=== PATIENT | male | born 1930 | race Caucasian/White ===

== ENCOUNTER 2017-04-05 09:38 | Inpatient (IN) | payer OTHER ==
[2017-04-05 09:50] VITALS: BMI 24.3
[2017-04-05] MEDS ORDERED: methylPREDNISolone NA SUCC 125 MG/2 ML VIAL IVPB ONE (10:46)
--- NOTE | 2017-04-05 11:03 | PDOC ---
History of Present Illness - General Chief Complaint: Shortness of Breath Stated Complaint: SOB, WHEEZING Time Seen by Provider: 04/05/17 09:54 - History of Present Illness Initial Comments: 04/05/17 11:03 "Patient is an 86 year old male with a significant past medical history of x2 Stroke (3 years ago) CVA right side weakness, Parkinson's, HTN, B12 Deficiency, asthma, and Seizures who presents to the ED with complaints of SOB that began 5 days ago. Patient reports experiencing bilateral leg swelling as well as right lower leg discoloration that began 3 weeks ago. These symptoms have subsided since with only some mild residual RLE discomfort. He states that the SOB has progressively worsened over the past few days. Patient reports experiencing a non productive cough as well as intermittent wheezing with exertion. Pt believes that this is an asthma exacerbation. Pt is followed by Dr. Dash, who did an EKG earlier this week and found that pt had new T wave inversions. Pt denies ever having any chest pain. Denies nausea, vomiting. Denies fevers, chills. Denies headache, earache. Denies abdominal pain, constipation, diarrhea. Denies contact with sick individuals, out of state traveling. Denies any other symptoms. Allergies: None Social history: No smoking, No alcohol. No illicit drugs. Surgical history: None PMD: Dr. Jimenez Dash " Past History - Past Medical History Allergies/Adverse Reactions: Allergies Allergy/AdvReac Type Severity Reaction Status Date / Time No Known Allergies Allergy Verified 04/05/17 09:47 Home Medications: Ambulatory Orders Unobtainable Home Med List 0 dose .ROUTE UTDICT 08/20/13 Aspirin Coated [Ecotrin -] 325 mg PO DAILY tablet. 11/15/14 Lisinopril [Prinivil] 20 mg PO DAILY tablet 11/15/14 Metoprolol Succinate [Toprol XL -] 50 mg PO DAILY tab.sr.24h 11/15/14 Rosuvastatin [Crestor -] 5 mg PO HS tablet 11/15/14 Hydralazine HCl [Apresoline -] 25 mg PO BID #60 tablet 11/17/14 Hydrochlorothiazide [Hctz -] 25 mg PO DAILY #60 tablet 11/17/14 Asthma: Yes CVA: Yes COPD: No HTN: Yes Seizures: Yes - Suicide/Smoking/Psychosocial Hx Smoking Status: No Smoking History: Never smoked Have you smoked in the past 12 months: No Number of Cigarettes Smoked Daily: 0 Information on smoking cessation initiated: No Hx Alcohol Use: No Drug/Substance Use Hx: No Substance Use Type: None Hx Substance Use Treatment: No Review of Systems - Review of Systems Comments:: 04/05/17 11:06 "GENERAL/CONSTITUTIONAL: No fever or chills. No weakness. HEAD, EYES, EARS, NOSE AND THROAT: No change in vision. No ear pain or discharge. No sore throat. GASTROINTESTINAL: No nausea, vomiting, diarrhea or constipation. GENITOURINARY: No dysuria, frequency, or change in urination. CARDIOVASCULAR: +Shortness of breath. No chest pain RESPIRATORY: +Coughing. +wheezing. No hemoptysis. MUSCULOSKELETAL: No joint or muscle swelling or pain. No neck or back pain. SKIN: No rash NEUROLOGIC: No headache, vertigo, loss of consciousness, or change in strength/ sensation. ENDOCRINE: No increased thirst. No abnormal weight change. HEMATOLOGIC/LYMPHATIC: No anemia, easy bleeding, or history of blood clots. ALLERGIC/IMMUNOLOGIC: No hives or skin allergy. " *Physical Exam - Vital Signs Last Vital Signs Temp Pulse Resp BP Pulse Ox 97.9 F 94 H 20 130/78 99 04/05/17 09:47 04/05/17 09:47 04/05/17 09:47 04/05/17 09:47 04/05/17 09:47 - Physical Exam Comments: 04/05/17 10:59 "GENERAL: Awake, alert, and fully oriented, in no acute distress HEAD: No signs of trauma EYES: PERRLA, EOMI, sclera anicteric, conjunctiva clear ENT: Auricles normal inspection, hearing grossly normal, nares patent, oropharynx clear without exudates. Moist mucosa NECK: Nontender, no stepoffs, Normal ROM, supple, no lymphadenopathy, JVD, or masses LUNGS: + bibasilar rales, very mild expiratory wheezes at lung bases HEART: Regular rate and rhythm, normal S1 and S2, no murmurs, rubs or gallops ABDOMEN: Soft, nontender, normoactive bowel sounds. No guarding, no rebound. No masses EXTREMITIES: RLE with +1 PE and hyperpigmentation, LLE no PE NEUROLOGICAL: Cranial nerves II through XII intact. 5/5 strength and sensation in all extremities, Normal speech, normal gait SKIN: Warm, Dry, normal turgor, no rashes or lesions noted. " Heart Score/ECG Review - ECG Impressions Comment:: 04/05/17 10:56 NSR, no Urmila/STDs, TWI in I and aVL, LBBB, left axis deviation, QTc 520, UT 220 ED Treatment Course - LABORATORY CBC & Chemistry Diagram: 04/05/17 11:15 04/05/17 11:15 - RADIOLOGY Radiology Studies Ordered: Category Date Time Status CHEST PA & LAT [RAD] Stat Radiology 04/05/17 10:44 Ordered DUPLEX VASCUL US-2LEGS [US] Stat Ultrasound 04/05/17 10:54 Ordered Medical Decision Making - Medical Decision Making 04/05/17 10:57 86 M with SOB x 5 days. Pt feels like this is an asthma exacerbation but has minimal wheezing on exam. Per Dr. Dash, pt has new EKG changes. Concerning for ACS or new CHF. Pt also with recent history of asymmetric leg swelling, concerning for PE. - Labs, trop, BNP, ddimer - CXR - LE dopplers - CTPE if indicated - Nebulizers, steroids - Admit 04/05/17 14:37 CBC,CMP WBC 11.2 K/mm3 (4.0-10.0) H 04/05/17 11:15 RBC 4.27 M/mm3 (4.00-5.60) 04/05/17 11:15 Hgb 13.3 GM/dL (11.7-16.9) 04/05/17 11:15 Hct 41.9 % (35.4-49) 04/05/17 11:15 MCV 98.2 fl (80-96) H 04/05/17 11:15 MCH 31.1 pg (25.7-33.7) 04/05/17 11:15 MCHC 31.7 g/dl (32.0-35.9) L 04/05/17 11:15 RDW 14.7 % (11.9-15.9) 04/05/17 11:15 Plt Count 247 K/MM3 (134-434) D 04/05/17 11:15 MPV 9.7 fl (7.5-11.1) 04/05/17 11:15 Neutrophils % 73.1 % (42.8-82.8) D 04/05/17 11:15 Lymphocytes % 21.2 % (8-40) D 04/05/17 11:15 Monocytes % 4.8 % (3.8-10.2) 04/05/17 11:15 Eosinophils % 0.4 % (0-4.5) 04/05/17 11:15 Basophils % 0.5 % (0-2.0) 04/05/17 11:15 Sodium 142 mmol/L (136-145) 04/05/17 11:15 Potassium 4.6 mmol/L (3.5-5.1) 04/05/17 11:15 Chloride 106 mmol/L (98-107) 04/05/17 11:15 Carbon Dioxide 27 mmol/L (21-32) 04/05/17 11:15 Anion Gap 9 (8-16) 04/05/17 11:15 BUN 23 mg/dL (7-18) H 04/05/17 11:15 Creatinine 1.2 mg/dL (0.7-1.3) 04/05/17 11:15 Creat Clearance w eGFR 57.27 (>60) 04/05/17 11:15 Random Glucose 91 mg/dL (74-106) 04/05/17 11:15 Calcium 8.5 mg/dL (8.5-10.1) 04/05/17 11:15 Total Bilirubin 0.5 mg/dL (0.2-1.0) 04/05/17 11:15 AST 88 U/L (15-37) H D 04/05/17 11:15 ALT 50 U/L (12-78) D 04/05/17 11:15 Alkaline Phosphatase 148 U/L (45-117) H D 04/05/17 11:15 Creatine Kinase 221 IU/L (39-308) 04/05/17 11:15 Creatine Kinase Index 3.1 % (0.0-5.0) 04/05/17 11:15 CK-MB (CK-2) 6.930 ng/mL (0.5-3.6) H 04/05/17 11:15 Troponin I 0.05 ng/ml (0.00-0.05) D 01/26/18 11:15 B-Natriuretic Peptide 7844.85 pg/ml (5-450) H 04/05/17 11:15 Total Protein 7.0 g/dl (6.4-8.2) 04/05/17 11:15 Albumin 3.2 g/dl (3.4-5.0) L 04/05/17 11:15 LE dopplers negative Labs notable for elevated BNP 7800. CXR on my read with new RLL consolidation. Will cover for HCAP with ceftriaxone/ azithro. Ddimer elevated, but will defer CTA for now given more likely diagnosis of pneumonia. Admit to Dr. Dash. *DC/Admit/Observation/Transfer Diagnosis at time of Disposition: Pneumonia - Discharge Dispostion Admit: Yes - Referrals Referrals: Jacinda Reardon MD [Primary Care Provider] - - Patient Instructions - Post Discharge Activity - Attestations Physician Attestion: 04/05/17 14:40 I, Dr. Levon Morgan MD, attest that this document has been prepared under my direction and personally reviewed by me in its entirety. I further attest, that it accurately reflects all work, treatment, procedures and medical decision -making performed by me.
[2017-04-05] MEDS ORDERED: ALBUTEROL SO4 2.5/IPRATROPIUM 0.5 INH SOL 3 ML VIAL.NEB. NEB ONE (11:48)
[2017-04-05] MEDS ORDERED: methylPREDNISolone NA SUCC 125 MG/2 ML VIAL ONE (11:49)
[2017-04-05 11:50] LABS: VENOUS PC02 57.9 mmHg (38-52); VENOUS PH 7.27 (7.32-7.42); VENOUS PO2 19.4 mmHg (28-48)
[2017-04-05] MEDS: ALBUTEROL SO4 2.5/IPRATROPIUM 0.5 INH SOL 3 ML VIAL.NEB. NEB SCH ×4 (12:00→12:33)
[2017-04-05 12:08] LABS: BASO % 0.5 % (0-2.0); EOS % 0.4 % (0-4.5); HEMATOCRIT 41.9 % (35.4-49); HEMOGLOBIN 13.3 GM/dL (11.7-16.9); LYMPH % 21.2 % (8-40); MCH 31.1 pg (25.7-33.7); MCHC 31.7 g/dl (32.0-35.9); MEAN CELL VOLUME 98.2 fl (80-96); MEAN PLT VOLUME 9.7 fl (7.5-11.1); MONO % 4.8 % (3.8-10.2); NEUT % 73.1 % (42.8-82.8); PLATELET COUNT 247 K/MM3 (134-434); RBC 4.27 M/mm3 (4.00-5.60); RDW 14.7 % (11.9-15.9); WHITE BLOOD COUNT 11.2 K/mm3 (4.0-10.0)
[2017-04-05 12:14] LABS: ALBUMIN 3.2 g/dl (3.4-5.0); ALK PHOS 148 U/L (45-117); ANION GAP 9 (8-16); BILIRUBIN,TOTAL 0.5 mg/dL (0.2-1.0); BLOOD UREA NITROGEN 23 mg/dL (7-18); CALCIUM 8.5 mg/dL (8.5-10.1); CHLORIDE 106 mmol/L (98-107); CO2 27 mmol/L (21-32); CREATININE 1.2 mg/dL (0.7-1.3); GLUCOSE,RANDOM 91 mg/dL (74-106); POTASSIUM 4.6 mmol/L (3.5-5.1); SGOT/AST 88 U/L (15-37); SGPT/ALT 50 U/L (12-78); SODIUM 142 mmol/L (136-145)
[2017-04-05 12:24] LABS: N-TERMINAL BNP 7844.85 pg/ml (5-450)
[2017-04-05 12:36] LABS: INR 1.1 (0.82-1.09); PROTHROMBIN TIME (PATIENT) 12.4 SEC (9.98-11.88)
[2017-04-05 12:39] LABS: ACTIVATED PTT 28.9 SECONDS (26.9-34.4)
[2017-04-05] MEDS ORDERED: CEFTRIAXONE 1 GM in DEXTROSE 5%-WATER - 50 ML IVPB ONE (14:37)
[2017-04-05] MEDS ORDERED: AZITHROMYCIN 500 MG TABLET PO ONE (14:37)
[2017-04-05] MEDS ORDERED: ACETAMINOPHEN 325 MG TABLET (FP) PO PRN (15:42)
[2017-04-05] MEDS ORDERED: CEFTRIAXONE 1 GM/50 ML BAG ONE (15:52)
[2017-04-05] MEDS ORDERED: AZITHROMYCIN 250 MG TABLET ONE (15:52)
--- NOTE | 2017-04-05 15:52 | HP ---
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 pt seen / examined earlier today in er events noted no distress subjective sob + denies cp. denies abd pain denies cough/ fever/ chills has abnormal ekg in office to be admitted to tele for chf exac. u/s -ve for dvt cxr- infiltrate ? 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, Parkinson's Cardiovascular: Yes: HTN Renal/: Yes: BPH Heme/Onc: Yes: B12 Deficiency - Smoking History Smoking history: Never smoked Have you smoked in the past 12 months: No Aproximately how many cigarettes per day: 0 - Alcohol/Substance Use Hx Alcohol Use: No - Social History History of Recent Travel: No Home Medications - Allergies Allergies/Adverse Reactions: Allergies Allergy/AdvReac Type Severity Reaction Status Date / Time No Known Allergies Allergy Verified 04/05/17 09:47 - Home Medications Home Medications: Ambulatory Orders Unobtainable Home Med List 0 dose .ROUTE UTDICT 08/20/13 Aspirin Coated [Ecotrin -] 325 mg PO DAILY tablet. 11/15/14 Lisinopril [Prinivil] 20 mg PO DAILY tablet 11/15/14 Metoprolol Succinate [Toprol XL -] 50 mg PO DAILY tab.sr.24h 11/15/14 Rosuvastatin [Crestor -] 5 mg PO HS tablet 11/15/14 Hydralazine HCl [Apresoline -] 25 mg PO BID #60 tablet 11/17/14 Hydrochlorothiazide [Hctz -] 25 mg PO DAILY #60 tablet 11/17/14 Review of Systems Findings/Remarks: see [facility] Physical Examination Vital Signs: Vital Signs Temperature 97.9 F 04/05/17 09:47 Pulse Rate 94 H 04/05/17 09:47 Respiratory Rate 20 04/05/17 09:47 Blood Pressure 130/78 04/05/17 09:47 O2 Sat by Pulse Oximetry (%) 97 04/05/17 10:35 Constitutional: Yes: No Distress, Calm Eyes: Yes: Conjunctiva Clear Neck: Yes: Supple Cardiovascular: Yes: Regular Rate and Rhythm Respiratory: Yes: Diminished (at bases) Gastrointestinal: Yes: Soft Edema: No Neurological: Yes: Alert, Pre-Existing Deficit (right side weakness.) Psychiatric: Yes: Alert Labs: CBC, BMP 04/05/17 11:15 04/05/17 11:15 Imaging - Results Chest X-ray: Report Reviewed Ultrasound: Report Reviewed Problem List - Problems (1) Shortness of breath Code(s): R06.02 - SHORTNESS OF BREATH (2) Acute exacerbation of CHF (congestive heart failure) Code(s): I50.9 - HEART FAILURE, UNSPECIFIED (3) CVA, old, ataxia Code(s): I69.993 - ATAXIA FOLLOWING UNSPECIFIED CEREBROVASCULAR DISEASE (4) Pneumonia Code(s): J18.9 - PNEUMONIA, UNSPECIFIED ORGANISM Assessment/Plan Admit to tele doubt pneumonia abx i/v lasix echo cardiology/ pulmonary eval meds reviewed will follow. discussed with pt/ pts sister.
--- NOTE | 2017-04-05 16:51 | CON.PULM ---
Consult Consult Specialty:: PULMONARY Referred by:: FLACO Reason for Consultation:: COPD - History of Present Illness Chief Complaint: SOB/OCCASSIONAL COUGH History of Present Illness: "Patient is an 86 year old male with a significant past medical history of x2 Stroke (3 years ago) CVA right side weakness, Parkinson's, HTN, B12 Deficiency, asthma, and Seizures who presents to the ED with complaints of SOB that began 5 days ago. Patient reports experiencing bilateral leg swelling as well as right lower leg discoloration that began 3 weeks ago. These symptoms have subsided since with only some mild residual RLE discomfort. He states that the SOB has progressively worsened over the past few days. Patient reports experiencing a non productive cough as well as intermittent wheezing with exertion. Pt believes that this is an asthma exacerbation. Pt is followed by Dr. Dash, who did an EKG earlier this week and found that pt had new T wave inversions. Pt denies ever having any chest pain. Denies nausea, vomiting. Denies fevers, chills. Denies headache, earache. Denies abdominal pain, constipation, diarrhea. Denies contact with sick individuals, out of state traveling. Denies any other symptoms. 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 No: O2 Dependent, Pneumonia, Pulmonary Fibrosis Gastrointestinal: No: Ascites Hepatobiliary: No: Cirrhosis Renal/: Yes: BPH Heme/Onc: No: Anemia - Alcohol/Substance Use Hx Alcohol Use: No - Smoking History Smoking history: Never smoked Have you smoked in the past 12 months: No Aproximately how many cigarettes per day: 0 - Social History History of Recent Travel: No Home Medications - Allergies Allergies/Adverse Reactions: Allergies Allergy/AdvReac Type Severity Reaction Status Date / Time No Known Allergies Allergy Verified 04/05/17 09:47 - Home Medications Home Medications: Ambulatory Orders Unobtainable Home Med List 0 dose .ROUTE UTDICT 08/20/13 Aspirin Coated [Ecotrin -] 325 mg PO DAILY tablet. 11/15/14 Lisinopril [Prinivil] 20 mg PO DAILY tablet 11/15/14 Metoprolol Succinate [Toprol XL -] 50 mg PO DAILY tab.sr.24h 11/15/14 Rosuvastatin [Crestor -] 5 mg PO HS tablet 11/15/14 Hydralazine HCl [Apresoline -] 25 mg PO BID #60 tablet 11/17/14 Hydrochlorothiazide [Hctz -] 25 mg PO DAILY #60 tablet 11/17/14 Family Disease History - Family Disease History Family History: Unremarkable Review of Systems - Review of Systems Constitutional: denies: Chills, Fever Eyes: denies: Blind Spots HENT: denies: Difficult Swallowing Neck: denies: Decreased ROM Cardiovascular: denies: Chest Pain Respiratory: reports: Cough, SOB on Exertion (CHRONIC) Gastrointestinal: reports: No Symptoms Genitourinary: reports: No Symptoms Physical Exam Vital Sings: Vital Signs Temperature 98.5 F 04/05/17 16:43 Pulse Rate 92 H 04/05/17 16:43 Respiratory Rate 18 04/05/17 16:43 Blood Pressure 130/89 04/05/17 16:43 O2 Sat by Pulse Oximetry (%) 95 04/05/17 16:00 Constitutional: Yes: Calm Eyes: Yes: EOM Intact HENT: Yes: Normocephalic Neck: Yes: Trachea Midline Cardiovascular: Yes: Regular Rate and Rhythm, S1, S2 Respiratory: Yes: CTA Bilaterally Gastrointestinal: Yes: Normal Bowel Sounds Edema: LLE: 1+ Neurological: Yes: Alert Psychiatric: Yes: Alert Labs: CBC, BMP 04/05/17 11:15 04/05/17 11:15 REST REVIEWED Imaging - Results Chest X-ray: Report Reviewed, Image Reviewed Ultrasound: Report Reviewed Problem List - Problems (1) Parkinson disease Code(s): G20 - PARKINSON'S DISEASE (2) Pneumonia Code(s): J18.9 - PNEUMONIA, UNSPECIFIED ORGANISM (3) Hypertension Code(s): I10 - ESSENTIAL (PRIMARY) HYPERTENSION Assessment/Plan 86 YEAR OLD MALE W H/O PARKINSON DISEASE/CVA ADMITTED W SOB PROGRESSIVE FOUND TO HAVE A POSSIBLE RLL INFILTRATE/ATELECTASIS INFLU SWAB NEGATIVE AGREE WITH ANTIBIOTICS/O2/BRONCHODILATORS ANTICIPATE EARLY DISCHARGE. Juana TIM MD
[2017-04-05] MEDS: FUROSEMIDE 40 MG/4 ML INJECTABLE VIAL IVPUSH SCH (17:19)
[2017-04-05] MEDS: ATORVASTATIN CA 10 MG TABLET (FP) PO SCH (21:07)
[2017-04-05] MEDS: HEPARIN NA (PORCINE) 5,000 UNITS/ML 1ML VIAL SQ SCH (21:08)
[2017-04-05] MEDS: CARBIDOPA/LEVODOPA 25/100 TABLET (FP) PO SCH (21:08)
[2017-04-05] MEDS: PRAMIPEXOLE DIHYDROCHLORIDE 0.25 MG TABLET PO SCH (21:08)
[2017-04-05] MEDS ORDERED: PT OWN MED DRAWER 7, Y5N ONE (21:10)
[2017-04-06] MEDS ORDERED: PT OWN MED DRAWER 7, Y5N ONE ×3 (05:10→23:42)
[2017-04-06] MEDS: CARBIDOPA/LEVODOPA 25/100 TABLET (FP) PO SCH ×3 (05:15→22:17)
--- NOTE | 2017-04-06 07:34 | CONS ---
DATE OF CONSULTATION: 04/05/2017 REQUESTING PHYSICIAN: Jimenez Dash MD CHIEF COMPLAINT: 1. Increasing dyspnea. 2. Pedal edema. 3. Wheezing. HISTORY: The patient is an 86-year-old gentleman with a history of hypertension status post cerebrovascular accident in 2007 and 2012 both affecting the right side, history of B12 deficiency, history of bronchial asthma starting at the age of 34. There is also history of tremors involving the right hand and right foot. The patient states that for the past 6 weeks he started noticing bilateral lower extremity edema and approximately 3 weeks ago this was accompanied by increasing shortness of breath, which progressively became more pronounced. The edema was associated with bilateral discoloration of the lower extremities, and he developed pruritus of both the lower extremities. He denies having chest pain or discomfort either at rest or with exertion. He did experience dyspnea when going to bed at night accompanied by intermittent wheezing and has a nonproductive cough. There is no history of palpitations, lightheadedness, dizziness, presyncope, or syncope reported. Denies having paroxysmal or nocturnal dyspnea or orthopnea. No history of diabetes mellitus. Denies having hypercholesterolemia. PAST MEDICAL HISTORY: As mentioned in the history of present illness. History of low back syndrome for the past 12 years. PAST SURGICAL HISTORY: No surgeries. SOCIAL HISTORY: He is . Has no children. 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 He has never smoked or drank. FAMILY HISTORY: Father at the age of 85 of natural causes. Mother at age 41 related to cancer site uncertain. He had 8 brothers and 1 sister. His younger brother at age 1-1/2. Another brother has of unknown cause. Remaining siblings are alive. He has 2 stepbrothers and 2 stepsisters. They are alive. ALLERGIES: The patient has SEASONAL ALLERGIES and states that he has had hay fever. MEDICATIONS: The patient forgot to bring his medicines, so he is uncertain of the names and doses. As noted in the emergency room record, he is on the following medications: 1. Aspirin 325 mg p.o. daily. 2. Lisinopril 20 mg p.o. daily. 3. Metoprolol succinate 50 mg p.o. daily. 4. Rosuvastatin 5 mg p.o. daily. 5. Hydralazine 25 mg p.o. b.i.d. 6. Hydrochlorothiazide 25 mg p.o. daily. CURRENT MEDICATIONS: 1. Tylenol 650 mg q.6 hours p.r.n. 2. Heparin 5000 units subcutaneous b.i.d. 3. 1 g IV daily. 4. Carbidopa/levodopa 25/100 mg p.o. t.i.d. 5. Mirapex 0.25 mg p.o. nightly. 6. Atorvastatin 10 mg p.o. daily. 7. Lasix 40 mg IV daily. 8. Plavix 75 mg p.o. daily. 9. Vitamin B12 takes 1000 mcg p.o. daily. 10. The patient received methylprednisolone 125 mg in the emergency room IV. 11. He also received 500 mg of azithromycin. 12. DuoNeb via nebulizer. REVIEW OF SYSTEMS: Constitutional: No history of chills, fever, or night sweats. No history of unintentional weight loss. HEENT: Denies having headaches, diplopia, blurred vision. Uses glasses for reading. No history of epistaxis, hoarseness, tinnitus, or deafness. Cardiovascular: See history of present illness. Respiratory: See history of present illness. History of nonproductive cough. No history of hemoptysis. No history of tuberculosis. Gastrointestinal: No history of nausea, vomiting, melena, or hematemesis. No history of abdominal pain or discomfort. No history of change in bowel habits. Neurologic: History of right hemiparesis and tremors involving the right hand and right foot. He has right hemiparesis. Endocrine: No history of polyuria or polydipsia. No history of intolerance to cold or warm weather. Genitourinary: History of frequency 4-5 times per day and nocturia 1-2 times per day. There is no history of hematuria. Musculoskeletal: History of chronic low back syndrome. Hematologic: Denies having anemia, ecchymosis, or bleeding. PHYSICAL EXAMINATION: General: An 86-year-old alert gentleman who is in moderate respiratory distress. There is no pallor, cyanosis, clubbing, or jaundice. Vital Signs: Blood pressure 130/89 mmHg, pulse 92 beats per minute and regular. He is afebrile. Respirations are 18 per minute. Weight is 200 pounds. Oxygen saturation is 98% on room air. Neck: Supple. No jugular venous distention. Neck veins are pulsatile. There is a positive hepatojugular reflux. Carotids are 2+. Upstrokes are normal. No bruits are heard. Heart: PMI is in the 5th intercostal space. No heaves or thrills. Heart sounds are distant. There is grade 1/6 systolic murmur heard over the left lower sternal border and apex inhaled expiration. No diastolic murmur or gallops are appreciated. Lungs: Fine crepitations at the right base. There are no other extraneous sounds heard. Chest: Normal AP diameter. Expansion is symmetrical. Abdomen: Soft, nontender. No hepatosplenomegaly or palpable masses are felt. Bowel sounds are present. No bruits are heard. Extremities: No calf tenderness. There is 1 to 2+ bilateral ankle edema. There is discoloration involving both lower extremities below the knees more pronounced on the right. Femoral pulses right is 1+, left is weak. Both dorsalis pedis and posterior tibial pulses are not palpable. There is deformity of the nails of both feet. LABORATORY DATA: ECG is not available. Lower extremity venous ultrasound. Impression: There is no evidence of deep vein thrombosis in both lower extremities. X-ray chest. Impression: Interval right basilar atelectatic changes/infiltrate and minimal infiltrate in the right mid lung as well as a small right pleural effusion. CBC: WBC count 11,200, hemoglobin 13.3 g/dL, platelet count 247,000. Differential: Neutrophils 73.1%, lymphocytes 21.2%, monocytes 4.8%, eosinophils 0.4%, basophils 0.5%. Chemistry: Sodium 142, potassium 4.6, chloride 106, CO2 is 27 mmol/L, BUN 23, creatinine 1.2 mg/dL, random glucose 91 mg/dl, AST 88, ALT 50, alkaline phosphatase 148, CK 221. Troponin 0.05. BNP 7844.85, total protein 7, albumin 3.2. IMPRESSION: 1. Clinical presentation consistent with congestive heart failure [place] Heart Classification 3-4. 2. Hypertension, hypertensive cardiovascular disease. 3. History of bronchial asthma, asthmatic bronchitis needs to be excluded. 4. Ausculatory findings suggestive of tricuspid regurgitation. 5. Status post cerebrovascular accident with right hemiparesis. 6. Tremors involving the right hand and foot secondary to number 4. 7. History of vitamin B12 deficiency. 8. Abnormal liver function tests. 9. History of low back syndrome. RECOMMENDATIONS: 1. Echocardiogram for evaluation of left ventricular size and function. 2. Kindly obtain all his medications from home. 3. Consider adding ARB. 4. ECG. 5. Follow up basic metabolic profile. 6. Bronchodilators via nebulizer. 7. Peripheral arterial Dopplers. Thank you for your referral. Radha [id number]
[2017-04-06 07:45] LABS: BASO % 0.2 % (0-2.0); EOS % 0.2 % (0-4.5); HEMATOCRIT 39.3 % (35.4-49); HEMOGLOBIN 12.4 GM/dL (11.7-16.9); LYMPH % 23.8 % (8-40); MCH 30.8 pg (25.7-33.7); MCHC 31.7 g/dl (32.0-35.9); MEAN CELL VOLUME 97.4 fl (80-96); MEAN PLT VOLUME 9.6 fl (7.5-11.1); MONO % 6.5 % (3.8-10.2); NEUT % 69.3 % (42.8-82.8); PLATELET COUNT 248 K/MM3 (134-434); RBC 4.03 M/mm3 (4.00-5.60); RDW 14.5 % (11.9-15.9); WHITE BLOOD COUNT 13.3 K/mm3 (4.0-10.0)
[2017-04-06 08:01] LABS: CHLORIDE 109 mmol/L (98-107); POTASSIUM 4.4 mmol/L (3.5-5.1); SODIUM 144 mmol/L (136-145)
[2017-04-06 08:06] LABS: ALK PHOS 120 U/L (45-117); ANION GAP 8 (8-16); BILIRUBIN,TOTAL 0.7 mg/dL (0.2-1.0); BLOOD UREA NITROGEN 26 mg/dL (7-18); CALCIUM 8.1 mg/dL (8.5-10.1); CHOLESTEROL 111 mg/dL (50-200); CO2 27 mmol/L (21-32); CREATININE 1.2 mg/dL (0.7-1.3); GLUCOSE,RANDOM 95 mg/dL (74-106); HDL CHOLESTEROL 48 mg/dL (40-60); LDL CHOLESTEROL (ONLY SJRH) 56 mg/dL (5-100); SGOT/AST 38 U/L (15-37); SGPT/ALT 21 U/L (12-78); TOT PROT 6.3 g/dl (6.4-8.2); TRIGLYCERIDES 66 mg/dL (35-160)
[2017-04-06] MEDS: CLOPIDOGREL BISULFATE 75 MG TABLET (FP) PO SCH (09:17)
[2017-04-06] MEDS: CYANOCOBALAMIN 1,000 MCG TABLET (FP) PO SCH (09:17)
[2017-04-06] MEDS: CEFTRIAXONE 1 G/50 ML PREMIX 50 ML IVPB SCH (09:17)
[2017-04-06] MEDS: FUROSEMIDE 40 MG/4 ML INJECTABLE VIAL IVPUSH SCH (09:17)
[2017-04-06] MEDS: HEPARIN NA (PORCINE) 5,000 UNITS/ML 1ML VIAL SQ SCH ×2 (09:17→22:18)
[2017-04-06 09:29] LABS: URINE APPEARANCE CLEAR; URINE BILIRUBIN NEGATIVE (NEGATIVE); URINE BLOOD 2+ (NEGATIVE); URINE COLOR STRAW; URINE GLUCOSE (UA) NEGATIVE (NEGATIVE); URINE KETONE NEGATIVE (NEGATIVE); URINE NITRITE NEGATIVE (NEGATIVE); URINE PROTEIN NEGATIVE (NEGATIVE); URINE UROBILINOGEN NEGATIVE mg/dL (0.2-1.0)
[2017-04-06 09:39] LABS: URINE LEUK ESTERASE 3+ (NEGATIVE)
[2017-04-06 09:55] LABS: EPI CELLS RARE /HPF (FEW); URINE BACTERIA FEW /hpf (NONE SEEN); URINE HYALINE CAST 1 /lpf
--- NOTE | 2017-04-06 12:21 | EKG ---
Test Reason : Blood Pressure : / mmHG Vent. Rate : 094 BPM Atrial Rate : 094 BPM P-R Int : 220 ms QRS Dur : 132 ms QT Int : 416 ms P-R-T Axes : 057 -47 122 degrees QTc Int : 520 ms SINUS RHYTHM WITH 1ST DEGREE A-V BLOCK WITH PREMATURE ATRIAL COMPLEXES POSSIBLE LEFT ATRIAL ENLARGEMENT LEFT AXIS DEVIATION LEFT BUNDLE BRANCH BLOCK ABNORMAL ECG Confirmed by MD CLYDE, MARGARETH ([id number]) on 04/06/2017 12:21:26 PM Referred By: Confirmed By:MARGARETH TANG MD
--- NOTE | 2017-04-06 12:22 | PN ---
Progress Note, Physician History of Present Illness: feels well all consults noted no complains - Current Medication List Current Medications: Active Medications Acetaminophen (Tylenol -) 650 mg PO Q6H PRN PRN Reason: BACK PAIN Last Admin: 04/05/17 21:08 Dose: 650 mg Atorvastatin Calcium (Lipitor -) 10 mg PO HS [facility] Last Admin: 04/05/17 21:07 Dose: 10 mg Carbidopa/Levodopa (Sinemet 25/100 -) 1 each PO TID [facility] Last Admin: 04/06/17 05:15 Dose: 1 each Clopidogrel Bisulfate (Plavix -) 75 mg PO DAILY [facility] Last Admin: 04/06/17 09:17 Dose: 75 mg Cyanocobalamin (Vitamin B12 -) 1,000 mcg PO DAILY [facility] Last Admin: 04/06/17 09:17 Dose: 1,000 mcg Furosemide (Lasix Injection -) 40 mg IVPUSH DAILY [facility] Last Admin: 04/06/17 09:17 Dose: 40 mg Heparin Sodium (Porcine) (Heparin -) 5,000 unit SQ BID [facility] Last Admin: 04/06/17 09:17 Dose: 5,000 unit CEFTRIAXONE 1 G/50 ML PREMIX (Ceftriaxone 1 Gm-D5w Bag) 50 mls @ 100 mls/hr IVPB DAILY [facility] Last Admin: 04/06/17 09:17 Dose: 100 mls/hr Pramipexole Dihydrochloride (Mirapex -) 0.25 mg PO HS [facility] Last Admin: 04/05/17 21:08 Dose: 0.25 mg - Objective Vital Signs: Vital Signs Temperature 97.6 F 04/06/17 05:38 Pulse Rate 78 04/06/17 10:00 Respiratory Rate 20 04/06/17 10:00 Blood Pressure 134/78 04/06/17 10:00 O2 Sat by Pulse Oximetry (%) 97 04/06/17 10:00 Constitutional: Yes: No Distress, Calm Eyes: Yes: Conjunctiva Clear Neck: Yes: Supple Cardiovascular: Yes: Regular Rate and Rhythm Respiratory: Yes: CTA Bilaterally Gastrointestinal: Yes: Soft Edema: No Neurological: Yes: Alert, Pre-Existing Deficit Labs: CBC, BMP 04/06/17 06:00 04/06/17 06:00 INR, PTT INR 1.10 (0.82-1.09) 01/26/18 11:15 Problem List - Problems (1) Shortness of breath Code(s): R06.02 - SHORTNESS OF BREATH (2) Acute exacerbation of CHF (congestive heart failure) Code(s): I50.9 - HEART FAILURE, UNSPECIFIED (3) CVA, old, ataxia Code(s): I69.993 - ATAXIA FOLLOWING UNSPECIFIED CEREBROVASCULAR DISEASE (4) Pneumonia Code(s): J18.9 - PNEUMONIA, UNSPECIFIED ORGANISM Assessment/Plan better clinically stable abx i/v lasix echo pending cardiology/ pulmonary eval consults noted discussed with pts sister in law/ pt she is recommending str - she is very concerned that she has many steps at home pt himself refuses str. continue present care will follow
--- NOTE | 2017-04-06 16:10 | PN ---
Progress Note (short form) - Note Progress Note: 86 year old male admited with SOB, pedal edema and diagnosed to have CHF, h/o hypertension, s/p CVA (x2) with right hemiplegia, bronchial asthma, has a persistant nonprductive cough, No further dyspnea or orthopnea. Patient is ambulating in the room. Active Medications Acetaminophen (Tylenol -) 650 mg PO Q6H PRN PRN Reason: BACK PAIN Last Admin: 04/05/17 21:08 Dose: 650 mg Atorvastatin Calcium (Lipitor -) 10 mg PO HS [facility] Last Admin: 04/05/17 21:07 Dose: 10 mg Carbidopa/Levodopa (Sinemet 25/100 -) 1 each PO TID [facility] Last Admin: 04/06/17 14:16 Dose: 1 each Clopidogrel Bisulfate (Plavix -) 75 mg PO DAILY [facility] Last Admin: 04/06/17 09:17 Dose: 75 mg Cyanocobalamin (Vitamin B12 -) 1,000 mcg PO DAILY [facility] Last Admin: 04/06/17 09:17 Dose: 1,000 mcg Furosemide (Lasix Injection -) 40 mg IVPUSH DAILY [facility] Last Admin: 04/06/17 09:17 Dose: 40 mg Heparin Sodium (Porcine) (Heparin -) 5,000 unit SQ BID [facility] Last Admin: 04/06/17 09:17 Dose: 5,000 unit CEFTRIAXONE 1 G/50 ML PREMIX (Ceftriaxone 1 Gm-D5w Bag) 50 mls @ 100 mls/hr IVPB DAILY [facility] Last Admin: 04/06/17 09:17 Dose: 100 mls/hr Pramipexole Dihydrochloride (Mirapex -) 0.25 mg PO HS [facility] Last Admin: 04/05/17 21:08 Dose: 0.25 mg 86 year male in no acute distress, no pallor, cyanosis or jaundice. Last Vital Signs Temp Pulse Resp BP Pulse Ox 98.3 F 85 22 135/83 97 04/06/17 13:25 04/06/17 13:25 04/06/17 13:25 04/06/17 13:25 04/06/17 10:00 NECK: Supple, no JVD, -ve HJR. NO bruits heards. HEART: No heaves or thrills , no murmur or gallops heard. LUNGS: Scattered creps. no wheezing heard ABDOMEN: Soft, no organomegaly or masses felt. EXTREMITIES: No edema or calf tenderness discoloration of both lower extremities. CBC, BMP 04/06/17 06:00 04/06/17 06:00 Troponin, BNP 04/06/17 06:00 Troponin I 0.05 IMPRESSION: 1. CHF, resolving. 2. Hypertension. 3. S/p CVA with right hemiparesis. 4. Asthmatic bronchitis. Recommendations: 1. Current therapy. 2. Echogardiogram. 3. EKG.
[2017-04-06] MEDS: PRAMIPEXOLE DIHYDROCHLORIDE 0.25 MG TABLET PO SCH (22:17)
[2017-04-06] MEDS: ATORVASTATIN CA 10 MG TABLET (FP) PO SCH (22:18)
[2017-04-07] MEDS ORDERED: PT OWN MED DRAWER 7, Y5N ONE ×3 (05:39→21:07)
[2017-04-07] MEDS: CARBIDOPA/LEVODOPA 25/100 TABLET (FP) PO SCH ×3 (05:44→21:35)
[2017-04-07] MEDS ORDERED: ALBUTEROL SO4 2.5/IPRATROPIUM 0.5 INH SOL 3 ML VIAL.NEB. NEB PRN (06:16)
[2017-04-07 07:56] LABS: BASO % 0.2 % (0-2.0); EOS % 1.8 % (0-4.5); HEMATOCRIT 39.4 % (35.4-49); HEMOGLOBIN 12.8 GM/dL (11.7-16.9); LYMPH % 36.4 % (8-40); MCH 31.6 pg (25.7-33.7); MCHC 32.5 g/dl (32.0-35.9); MEAN CELL VOLUME 97.2 fl (80-96); MEAN PLT VOLUME 9.7 fl (7.5-11.1); MONO % 6.4 % (3.8-10.2); NEUT % 55.2 % (42.8-82.8); PLATELET COUNT 246 K/MM3 (134-434); RBC 4.06 M/mm3 (4.00-5.60); RDW 14.3 % (11.9-15.9); WHITE BLOOD COUNT 11.5 K/mm3 (4.0-10.0)
[2017-04-07 08:10] LABS: CHLORIDE 107 mmol/L (98-107); POTASSIUM 4.4 mmol/L (3.5-5.1); SODIUM 143 mmol/L (136-145)
[2017-04-07 08:22] LABS: ALBUMIN 3.1 g/dl (3.4-5.0); ALK PHOS 111 U/L (45-117); ANION GAP 9 (8-16); BILIRUBIN,TOTAL 0.4 mg/dL (0.2-1.0); BLOOD UREA NITROGEN 35 mg/dL (7-18); CALCIUM 8.3 mg/dL (8.5-10.1); CO2 27 mmol/L (21-32); CREATININE 1.4 mg/dL (0.7-1.3); GLUCOSE,RANDOM 87 mg/dL (74-106); SGOT/AST 34 U/L (15-37); SGPT/ALT 20 U/L (12-78); TOT PROT 6.5 g/dl (6.4-8.2)
[2017-04-07] MEDS: HEPARIN NA (PORCINE) 5,000 UNITS/ML 1ML VIAL SQ SCH ×2 (09:59→21:34)
[2017-04-07] MEDS: FUROSEMIDE 40 MG/4 ML INJECTABLE VIAL IVPUSH SCH (09:59)
[2017-04-07] MEDS: CYANOCOBALAMIN 1,000 MCG TABLET (FP) PO SCH (10:00)
[2017-04-07] MEDS: CLOPIDOGREL BISULFATE 75 MG TABLET (FP) PO SCH (10:00)
[2017-04-07] MEDS: CEFTRIAXONE 1 G/50 ML PREMIX 50 ML IVPB SCH (10:00)
--- NOTE | 2017-04-07 11:24 | PN ---
Progress Note, Physician History of Present Illness: feels better denies cp. denies sob. says go to bathroom frequently for frequent urination. - Current Medication List Current Medications: Active Medications Acetaminophen (Tylenol -) 650 mg PO Q6H PRN PRN Reason: BACK PAIN Last Admin: 04/05/17 21:08 Dose: 650 mg Albuterol/Ipratropium (Duoneb -) 1 amp NEB Q6H PRN PRN Reason: SHORTNESS OF BREATH Stop: 04/07/17 14:00 Last Admin: 04/07/17 06:37 Dose: 1 amp Atorvastatin Calcium (Lipitor -) 10 mg PO [facility] Last Admin: 04/06/17 22:18 Dose: 10 mg Carbidopa/Levodopa (Sinemet 25/100 -) 1 each PO TID [facility] Last Admin: 04/07/17 05:44 Dose: 1 each Clopidogrel Bisulfate (Plavix -) 75 mg PO DAILY [facility] Last Admin: 04/07/17 10:00 Dose: 75 mg Cyanocobalamin (Vitamin B12 -) 1,000 mcg PO DAILY [facility] Last Admin: 04/07/17 10:00 Dose: 1,000 mcg Furosemide (Lasix Injection -) 40 mg IVPUSH DAILY [facility] Last Admin: 04/07/17 09:59 Dose: 40 mg Heparin Sodium (Porcine) (Heparin -) 5,000 unit SQ BID [facility] Last Admin: 04/07/17 09:59 Dose: 5,000 unit CEFTRIAXONE 1 G/50 ML PREMIX (Ceftriaxone 1 Gm-D5w Bag) 50 mls @ 100 mls/hr IVPB DAILY [facility] Last Admin: 04/07/17 10:00 Dose: 100 mls/hr Pramipexole Dihydrochloride (Mirapex -) 0.25 mg PO [facility] Last Admin: 04/06/17 22:17 Dose: 0.25 mg - Objective Vital Signs: Vital Signs Temperature 98.1 F 04/07/17 09:43 Pulse Rate 88 04/07/17 09:43 Respiratory Rate 20 04/07/17 09:43 Blood Pressure 121/68 04/07/17 09:43 O2 Sat by Pulse Oximetry (%) 97 04/06/17 21:00 Constitutional: Yes: No Distress, Calm Eyes: Yes: Conjunctiva Clear Neck: Yes: Supple Cardiovascular: Yes: Regular Rate and Rhythm Respiratory: Yes: Diminished (at bases- better air entry) Gastrointestinal: Yes: Soft Edema: No Neurological: Yes: Alert, Pre-Existing Deficit Labs: CBC, BMP 04/07/17 06:20 04/07/17 06:20 INR, PTT INR 1.10 (0.82-1.09) 04/05/17 11:15 Problem List - Problems (1) Shortness of breath Code(s): R06.02 - SHORTNESS OF BREATH (2) Acute exacerbation of CHF (congestive heart failure) Code(s): I50.9 - HEART FAILURE, UNSPECIFIED (3) CVA, old, ataxia Code(s): I69.993 - ATAXIA FOLLOWING UNSPECIFIED CEREBROVASCULAR DISEASE (4) Pneumonia Code(s): J18.9 - PNEUMONIA, UNSPECIFIED ORGANISM Assessment/Plan better clinically stable abx i/v lasix-- hold today echo pending ambulatory in [address] will follow
--- NOTE | 2017-04-07 11:28 | EKG ---
Test Reason : Blood Pressure : / mmHG Vent. Rate : 088 BPM Atrial Rate : 088 BPM P-R Int : 216 ms QRS Dur : 132 ms QT Int : 420 ms P-R-T Axes : 066 -54 131 degrees QTc Int : 508 ms SINUS RHYTHM WITH 1ST DEGREE A-V BLOCK WITH PREMATURE ATRIAL COMPLEXES LEFT AXIS DEVIATION LEFT BUNDLE BRANCH BLOCK ABNORMAL ECG WHEN COMPARED WITH ECG OF 05-APR-2017 09:57, NO SIGNIFICANT CHANGE WAS FOUND Confirmed by MD CLYDE, MARGARETH ([id number]) on 04/07/2017 11:28:11 AM Referred By: Confirmed By:MARGARETH TANG MD
--- NOTE | 2017-04-07 12:44 | PN ---
Progress Note, Physician Chief Complaint: WEAKNESS/FATIGUE/SOB History of Present Illness: "Patient is an 86 year old male with a significant past medical history of x2 Stroke (3 years ago) CVA right side weakness, Parkinson's, HTN, B12 Deficiency, asthma, and Seizures who presents to the ED with complaints of SOB that began 5 days ago. Patient reports experiencing bilateral leg swelling as well as right lower leg discoloration that began 3 weeks ago. These symptoms have subsided since with only some mild residual RLE discomfort. He states that the SOB has progressively worsened over the past few days. Patient reports experiencing a non productive cough as well as intermittent wheezing with exertion. Pt believes that this is an asthma exacerbation. Pt is followed by Dr. Dash, who did an EKG earlier this week and found that pt had new T wave inversions. Pt denies ever having any chest pain. Denies nausea, vomiting. Denies fevers, chills. Denies headache, earache. Denies abdominal pain, constipation, diarrhea. Denies contact with sick individuals, out of state traveling. Denies any other symptoms. - Current Medication List Current Medications: Active Medications Acetaminophen (Tylenol -) 650 mg PO Q6H PRN PRN Reason: BACK PAIN Last Admin: 04/05/17 21:08 Dose: 650 mg Albuterol/Ipratropium (Duoneb -) 1 amp NEB Q6H PRN PRN Reason: SHORTNESS OF BREATH Stop: 04/07/17 14:00 Last Admin: 04/07/17 06:37 Dose: 1 amp Atorvastatin Calcium (Lipitor -) 10 mg PO HS [facility] Last Admin: 04/06/17 22:18 Dose: 10 mg Carbidopa/Levodopa (Sinemet 25/100 -) 1 each PO TID [facility] Last Admin: 04/07/17 05:44 Dose: 1 each Clopidogrel Bisulfate (Plavix -) 75 mg PO DAILY [facility] Last Admin: 04/07/17 10:00 Dose: 75 mg Cyanocobalamin (Vitamin B12 -) 1,000 mcg PO DAILY [facility] Last Admin: 04/07/17 10:00 Dose: 1,000 mcg Furosemide (Lasix Injection -) 40 mg IVPUSH DAILY [facility] Last Admin: 04/07/17 09:59 Dose: 40 mg Heparin Sodium (Porcine) (Heparin -) 5,000 unit SQ BID [facility] Last Admin: 04/07/17 09:59 Dose: 5,000 unit CEFTRIAXONE 1 G/50 ML PREMIX (Ceftriaxone 1 Gm-D5w Bag) 50 mls @ 100 mls/hr IVPB DAILY [facility] Last Admin: 04/07/17 10:00 Dose: 100 mls/hr Pramipexole Dihydrochloride (Mirapex -) 0.25 mg PO HS [facility] Last Admin: 04/06/17 22:17 Dose: 0.25 mg - Objective Vital Signs: Vital Signs Temperature 98.1 F 04/07/17 09:43 Pulse Rate 88 04/07/17 09:43 Respiratory Rate 20 04/07/17 09:43 Blood Pressure 121/68 04/07/17 09:43 O2 Sat by Pulse Oximetry (%) 97 04/06/17 21:00 Constitutional: Yes: Calm Eyes: Yes: EOM Intact, Ptosis Neck: Yes: Trachea Midline Cardiovascular: Yes: S1, S2 Respiratory: Yes: CTA Bilaterally Gastrointestinal: Yes: Soft Edema: No Neurological: Yes: Alert Labs: CBC, BMP 04/07/17 06:20 04/07/17 06:20 INR, PTT INR 1.10 (0.82-1.09) 04/05/17 11:15 - ....Imaging Chest X-ray: Report Reviewed, Image Reviewed Problem List - Problems (1) Parkinson disease Code(s): G20 - PARKINSON'S DISEASE (2) Pneumonia Code(s): J18.9 - PNEUMONIA, UNSPECIFIED ORGANISM (3) Hypertension Code(s): I10 - ESSENTIAL (PRIMARY) HYPERTENSION Assessment/Plan 86 YEAR OLD MALE W H/O PARKINSON DISEASE/CVA ADMITTED W SOB PROGRESSIVE FOUND TO HAVE A POSSIBLE RLL INFILTRATE/ATELECTASIS INFLU SWAB NEGATIVE AGREE WITH ANTIBIOTICS/O2/BRONCHODILATORS ANTICIPATE EARLY DISCHARGE. Juana TIM MD
--- NOTE | 2017-04-07 14:56 | PN ---
Progress Note (short form) - Note Progress Note: 86 year old male admited with SOB, pedal edema and diagnosed to have CHF, h/o hypertension, s/p CVA (x2) with right hemiplegia, bronchial asthma, has a persistant nonprductive cough, no SOB, chest pain or discomfort. No pedal edema. Active Medications Generic Name Dose Route Start Last Admin Trade Name Freq PRN Reason Stop Dose Admin Acetaminophen 650 mg 04/05/17 15:42 04/05/17 21:08 Tylenol - PO 650 mg Q6H PRN Administration BACK PAIN Atorvastatin Calcium 10 mg 04/05/17 22:00 04/06/17 22:18 Lipitor - PO 10 mg HS [facility] Administration Carbidopa/Levodopa 1 each 04/05/17 22:00 04/07/17 14:21 Sinemet 25/100 - PO 1 each TID [facility] Administration Clopidogrel Bisulfate 75 mg 04/06/17 10:00 04/07/17 10:00 Plavix - PO 75 mg DAILY [facility] Administration Cyanocobalamin 1,000 mcg 04/06/17 10:00 04/07/17 10:00 Vitamin B12 - PO 1,000 mcg DAILY [facility] Administration Furosemide 40 mg 04/05/17 16:00 04/07/17 09:59 Lasix Injection - IVPUSH 40 mg DAILY [facility] Administration Heparin Sodium (Porcine) 5,000 unit 04/05/17 22:00 04/07/17 09:59 Heparin - SQ 5,000 unit BID [facility] Administration CEFTRIAXONE 1 G/50 ML PREMIX 50 mls @ 100 mls/hr 04/06/17 10:00 04/07/17 10: 00 Ceftriaxone 1 Gm-D5w Bag IVPB 100 mls/hr DAILY [facility] Administration Pramipexole Dihydrochloride 0.25 mg 04/05/17 22:00 04/06/17 22:17 Mirapex - PO 0.25 mg HS [facility] Administration 86 year male in no acute distress, no pallor, cyanosis or jaundice. Last Vital Signs Temp Pulse Resp BP Pulse Ox 98.1 F 88 20 121/68 95 04/07/17 09:43 04/07/17 09:43 04/07/17 09:43 04/07/17 09:43 04/07/17 09:00 NECK: Supple, no JVD, pulsatile neck veins -ve HJR. NO bruits heards. HEART: No heaves or thrills , no murmur or gallops heard. LUNGS: Clear on auscultation ABDOMEN: Soft, no organomegaly or masses felt. EXTREMITIES: No edema or calf tenderness, discoloration of both lower extremities. DP and PT are not palpable. EKG: Sinus rhythm, first degree AV block, intra atrial conduction abnormality, rare supraventricular premature beats. CBC, BMP 04/07/17 06:20 04/07/17 06:20 IMPRESSION: 1. CHF, resolving. 2. Hypertension. 3. S/p CVA with right hemiparesis. 4. Asthmatic bronchitis. 5. PAD, needs to be excluded. 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 7. CKD. Recommendations: 1. Current therapy. 2. Echocardiogram. 3. Risk modifications. 4. Switch to oral diuretic. 5. Further suggestions will depend upon the echo findings.
[2017-04-07] MEDS: PRAMIPEXOLE DIHYDROCHLORIDE 0.25 MG TABLET PO SCH (21:35)
[2017-04-07] MEDS: ATORVASTATIN CA 10 MG TABLET (FP) PO SCH (21:35)
[2017-04-08] MEDS: CARBIDOPA/LEVODOPA 25/100 TABLET (FP) PO SCH ×3 (06:17→22:33)
--- NOTE | 2017-04-08 09:23 | DS ---
Physical Examination Vital Signs: Vital Signs Temperature 98.0 F 04/08/17 06:00 Pulse Rate 81 04/08/17 06:00 Respiratory Rate 16 04/08/17 06:00 Blood Pressure 122/68 04/08/17 06:00 O2 Sat by Pulse Oximetry (%) 95 04/07/17 21:00 Findings/Remarks: Feels much better Walks in the room with cane Denies chest pain or shortness of breath. wants to go home only Do not want to go for rehabilitation Constitutional: Yes: No Distress, Calm Eyes: Yes: Conjunctiva Clear Neck: Yes: Supple Cardiovascular: Yes: Regular Rate and Rhythm Respiratory: Yes: Diminished. No: CTA Bilaterally (at bases--improved), Cough Gastrointestinal: Yes: Soft Edema: No Neurological: Yes: Alert, Pre-Existing Deficit Psychiatric: Yes: Alert Labs: CBC, BMP 04/07/17 06:20 04/07/17 06:20 Discharge Summary Reason For Visit: PNEUMONIA Current Active Problems Acute exacerbation of CHF (congestive heart failure) (Acute) CVA, old, ataxia (Acute) Parkinson disease (Acute) Pneumonia (Acute) Pneumonia (Acute) Shortness of breath (Acute) Hospital Course: admitted for short of breath/CHF exacerbation possible pneumonia Treated with IV Lasix and antibiotics Pulmonary and cardiology also followed Not much better No stable for discharge--pending echocardiogram anticipate discharge later today--- Pending echocardiogram and cardiology clearance Will order physical therapy also Medications prescribed to her pharmacy as needed Medications reconciled Discussed with nursing staff also Strongly advised to follow up in office next week Condition: Improved - Instructions Referrals: Jacinda Reardon MD [Primary Care Provider] - Disposition: HOME - Home Medications Comprehensive Discharge Medication List: Ambulatory Orders Lisinopril [Prinivil] 20 mg PO DAILY tablet 11/15/14 Metoprolol Succinate [Toprol XL -] 50 mg PO DAILY tab.sr.24h 11/15/14 Rosuvastatin [Crestor -] 5 mg PO HS tablet 11/15/14 Hydralazine HCl [Apresoline -] 25 mg PO BID #60 tablet 11/17/14 Hydrochlorothiazide [Hctz -] 25 mg PO DAILY #60 tablet 11/17/14 Acetaminophen [Tylenol .Regular Strength -] 650 mg PO Q6H PRN tablet 04/06/17 Carbidopa/Levodopa 25/100 [Sinemet 25/100 -] 1 each PO TID tablet 04/06/17 Clopidogrel Bisulfate [Plavix -] 75 mg PO DAILY tablet 04/06/17 Cyanocobalamin [Vitamin B12 -] 1,000 mcg PO DAILY tablet 04/06/17 Levofloxacin [Levaquin] 500 mg PO DAILY #7 tablet 04/06/17 Pramipexole Dihydrochloride [Mirapex -] 0.25 mg PO HS tablet 04/06/17
[2017-04-08] MEDS: CYANOCOBALAMIN 1,000 MCG TABLET (FP) PO SCH (10:41)
[2017-04-08] MEDS: CLOPIDOGREL BISULFATE 75 MG TABLET (FP) PO SCH (10:41)
[2017-04-08] MEDS: HEPARIN NA (PORCINE) 5,000 UNITS/ML 1ML VIAL SQ SCH ×2 (10:41→22:32)
[2017-04-08] MEDS: CEFTRIAXONE 1 G/50 ML PREMIX 50 ML IVPB SCH (10:41)
--- NOTE | 2017-04-08 11:03 | PN ---
Progress Note (short form) - Note Progress Note: 86 year old male admited with SOB, pedal edema and diagnosed to have CHF, h/o hypertension, s/p CVA (x2) with right hemiplegia, bronchial asthma, has a persistant nonprductive cough. Continues to improve, no SOB, chest pain or discomfort, progressive weight loss, awaiting echocardiogram. Active Medications Acetaminophen (Tylenol -) 650 mg PO Q6H PRN PRN Reason: BACK PAIN Last Admin: 04/05/17 21:08 Dose: 650 mg Atorvastatin Calcium (Lipitor -) 10 mg PO HS [facility] Last Admin: 04/07/17 21:35 Dose: 10 mg Carbidopa/Levodopa (Sinemet 25/100 -) 1 each PO TID [facility] Last Admin: 04/08/17 06:17 Dose: 1 each Clopidogrel Bisulfate (Plavix -) 75 mg PO DAILY [facility] Last Admin: 04/08/17 10:41 Dose: 75 mg Cyanocobalamin (Vitamin B12 -) 1,000 mcg PO DAILY [facility] Last Admin: 04/08/17 10:41 Dose: 1,000 mcg Furosemide (Lasix Injection -) 40 mg IVPUSH DAILY [facility] Last Admin: 04/07/17 09:59 Dose: 40 mg Heparin Sodium (Porcine) (Heparin -) 5,000 unit SQ BID [facility] Last Admin: 04/08/17 10:41 Dose: 5,000 unit CEFTRIAXONE 1 G/50 ML PREMIX (Ceftriaxone 1 Gm-D5w Bag) 50 mls @ 100 mls/hr IVPB DAILY [facility] Last Admin: 04/08/17 10:41 Dose: 100 mls/hr Pramipexole Dihydrochloride (Mirapex -) 0.25 mg PO [facility] Last Admin: 04/07/17 21:35 Dose: 0.25 mg 86 year male in no acute distress, no pallor, cyanosis or jaundice. Last Vital Signs Temp Pulse Resp BP Pulse Ox 97.6 F 105 H 18 144/64 95 04/08/17 10:00 04/08/17 10:00 04/08/17 10:00 04/08/17 10:00 04/07/17 21:00 Intake & Output 04/05/17 04/06/17 04/07/17 04/08/17 23:59 23:59 23:59 23:59 Intake Total 300 880 400 650 Output Total 825 378 901 Balance 300 55 -450 -300 Weight 200 lb 198 lb 2 oz 196 lb 6 oz 193 lb 6.4 oz NECK: Supple, no JVD, pulsatile neck veins -ve HJR. NO bruits heards. HEART: No heaves or thrills , no murmur or gallops heard. LUNGS: Clear on auscultation ABDOMEN: Soft, no organomegaly or masses felt. EXTREMITIES: No edema or calf tenderness, discoloration of right lower extremities. Decrease discoloration left lower leg. DP and PT are not palpable. EKG: Sinus rhythm, first degree AV block, intra atrial conduction abnormality, rare supraventricular premature beats. CBC, BMP 04/07/17 06:20 04/07/17 06:20 IMPRESSION: 1. CHF, resolved. 2. Hypertension. 3. S/p CVA with right hemiparesis. 4. Asthmatic bronchitis. 5. PAD, needs to be excluded. 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 7. CKD. Recommendations: 1. Echocardiogram pending, discharge depends upon echo findings. 2. Continue current meds. 3. Curtail sodium intake. 4. Monitor daliy weight and should notify PCP if there is a 2 lb. wt. gain
[2017-04-08] MEDS ORDERED: PT OWN MED DRAWER 7, Y5N ONE ×2 (13:36→22:26)
[2017-04-08] MEDS: ATORVASTATIN CA 10 MG TABLET (FP) PO SCH (22:32)
[2017-04-08] MEDS: PRAMIPEXOLE DIHYDROCHLORIDE 0.25 MG TABLET PO SCH (22:33)
[2017-04-09] MEDS: CARBIDOPA/LEVODOPA 25/100 TABLET (FP) PO SCH (06:39)
--- NOTE | 2017-04-09 08:46 | PN ---
Progress Note (short form) - Note Progress Note: patient seen and examined. Comfortable Ambulatory in room with cane. Wants to go home.. Do not want to go to rehabilitation. Echocardiogram--severe LV dysfunction--ejection fraction around 30-35% Denies chest pain or shortness of breath Vital Signs Temp 98.0 F 04/09/17 06:00 Pulse 78 04/09/17 06:00 Resp 18 04/09/17 06:00 BP 110/54 04/09/17 06:00 Pulse Ox 95 04/08/17 21:00 Intake & Output 04/08/17 04/08/17 04/09/17 11:59 23:59 11:59 Intake Total 700 1290 120 Output Total 950 300 300 Balance -250 990 -180 Weight 193 lb 6.4 oz 195 lb 4 oz Intake: IV 10 LFA #22G 04/06/17 10 IVPB 50 50 Oral 650 1230 120 Output: Urine 950 300 300 Void 950 300 300 Other: Voiding Method Urinal Urinal # Unmeasured Voids Void 1 Bowel Movement Yes No Weight Measurement Method Standing Scale Standing Scale Active Medications Acetaminophen (Tylenol -) 650 mg PO Q6H PRN PRN Reason: BACK PAIN Last Admin: 04/05/17 21:08 Dose: 650 mg Atorvastatin Calcium (Lipitor -) 10 mg PO HS [facility] Last Admin: 04/08/17 22:32 Dose: 10 mg Carbidopa/Levodopa (Sinemet 25/100 -) 1 each PO TID [facility] Last Admin: 04/09/17 06:39 Dose: 1 each Clopidogrel Bisulfate (Plavix -) 75 mg PO DAILY [facility] Last Admin: 04/08/17 10:41 Dose: 75 mg Cyanocobalamin (Vitamin B12 -) 1,000 mcg PO DAILY [facility] Last Admin: 04/08/17 10:41 Dose: 1,000 mcg Furosemide (Lasix Injection -) 40 mg IVPUSH DAILY [facility] Last Admin: 04/07/17 09:59 Dose: 40 mg Heparin Sodium (Porcine) (Heparin -) 5,000 unit SQ BID [facility] Last Admin: 04/08/17 22:32 Dose: 5,000 unit CEFTRIAXONE 1 G/50 ML PREMIX (Ceftriaxone 1 Gm-D5w Bag) 50 mls @ 100 mls/hr IVPB DAILY [facility] Last Admin: 04/08/17 10:41 Dose: 100 mls/hr Pramipexole Dihydrochloride (Mirapex -) 0.25 mg PO HS [facility] Last Admin: 04/08/17 22:33 Dose: 0.25 mg Echo- Noted - severe lv dysfunction--ef 30-40 percent physical exam Constitutional: Yes: No Distress, comfortable Eyes: Yes: Conjunctiva Clear Neck: Yes: Supple, no JVD Cardiovascular: Yes: Regular Rate and Rhythm Respiratory: Yes: Diminished (at bases- better air entry) Gastrointestinal: Yes: Soft Edema: No Neurological: Yes: Alert, Pre-Existing Deficit Hospital Course: clinically stable Stable for discharge Patient strongly advised to follow up in office with me as well as 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 Patient in agreement Please see detailed discharge summary as of yesterday In summary again admitted for short of breath/CHF exacerbation possible pneumonia Treated with IV Lasix and antibiotics Pulmonary and cardiology also followed Now much better Now stable for discharge-- Medications prescribed to pharmacy as needed Medications reconciled Discussed with nursing staff also Strongly advised to follow up in office next week. Problem List - Problems (1) Shortness of breath Code(s): R06.02 - SHORTNESS OF BREATH (2) Acute exacerbation of CHF (congestive heart failure) Code(s): I50.9 - HEART FAILURE, UNSPECIFIED (3) CVA, old, ataxia Code(s): I69.993 - ATAXIA FOLLOWING UNSPECIFIED CEREBROVASCULAR DISEASE (4) Pneumonia Code(s): J18.9 - PNEUMONIA, UNSPECIFIED ORGANISM
[2017-04-09] MEDS: CLOPIDOGREL BISULFATE 75 MG TABLET (FP) PO SCH (09:23)
[2017-04-09] MEDS: HEPARIN NA (PORCINE) 5,000 UNITS/ML 1ML VIAL SQ SCH (09:23)
[2017-04-09] MEDS: CEFTRIAXONE 1 G/50 ML PREMIX 50 ML IVPB SCH (09:23)
[2017-04-09] MEDS: CYANOCOBALAMIN 1,000 MCG TABLET (FP) PO SCH (09:23)
[2017-04-09 09:37] VITALS: BP 144/85; PULSE 97; TEMP 97.5
--- NOTE | 2017-04-09 10:52 | PN ---
Progress Note (short form) - Note Progress Note: 86 year old male admited with SOB, pedal edema and diagnosed to have CHF, h/o hypertension, s/p CVA (x2) with right hemiplegia, bronchial asthma, has residual cough, no SOB, no chest pain or discomfort. Echo reveals severe LV systolic dysfunction, EF 30-35%. Active Medications Generic Name Dose Route Start Last Admin Trade Name Freq PRN Reason Stop Dose Admin Acetaminophen 650 mg 04/05/17 15:42 04/05/17 21:08 Tylenol - PO 650 mg Q6H PRN Administration BACK PAIN Atorvastatin Calcium 10 mg 04/05/17 22:00 04/08/17 22:32 Lipitor - PO 10 mg HS BALTA Administration Carbidopa/Levodopa 1 each 04/05/17 22:00 04/09/17 06:39 Sinemet 25/100 - PO 1 each TID BALTA Administration Clopidogrel Bisulfate 75 mg 04/06/17 10:00 04/09/17 09:23 Plavix - PO 75 mg DAILY BALTA Administration Cyanocobalamin 1,000 mcg 04/06/17 10:00 04/09/17 09:23 Vitamin B12 - PO 1,000 mcg DAILY BALTA Administration Furosemide 40 mg 04/05/17 16:00 04/07/17 09:59 Lasix Injection - IVPUSH 40 mg DAILY BALTA Administration Heparin Sodium (Porcine) 5,000 unit 04/05/17 22:00 04/09/17 09:23 Heparin - SQ 5,000 unit BID BALTA Administration CEFTRIAXONE 1 G/50 ML PREMIX 50 mls @ 100 mls/hr 04/06/17 10:00 04/09/17 09: 23 Ceftriaxone 1 Gm-D5w Bag IVPB 100 mls/hr DAILY BALTA Administration Pramipexole Dihydrochloride 0.25 mg 04/05/17 22:00 04/08/17 22:33 Mirapex - PO 0.25 mg HS BALTA Administration 86 year male in no acute distress, no pallor, cyanosis or jaundice. Last Vital Signs Temp Pulse Resp BP Pulse Ox 97.5 F L 97 H 18 144/85 95 04/09/17 09:36 04/09/17 09:36 04/09/17 09:36 04/09/17 09:36 04/08/17 21:00 NECK: Supple, no JVD, pulsatile neck veins -ve HJR. NO bruits heards. HEART: No heaves or thrills , no murmur or gallops heard. LUNGS: Clear on auscultation ABDOMEN: Soft, no organomegaly or masses felt. EXTREMITIES: No edema or calf tenderness, discoloration of right lower extremities. Decrease discoloration left lower leg. DP and PT are not palpable. EKG: Sinus rhythm, first degree AV block, intra atrial conduction abnormality, rare supraventricular premature beats. IMPRESSION: 1. CHF, resolved. 2. Hypertension. 3. S/p CVA with right hemiparesis. 4. Asthmatic bronchitis. 5. PAD, needs to be excluded. 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 7. CKD. 8. Severe LV systolic dysfunction. Recommendations: 1. consider adding Coreg and titrate to tolerance. 2. Continue current meds. 3. Curtail sodium intake. 4. Monitor daliy weight and should notify PCP if there is a 2 lb. wt. gain. 5. May have to add ARB provided renal function remains stable. 6. Close outpatient follow up. 7. Salt restriction. 8. Further work up to be done out patient.
== END 2017-04-09 10:55 | disposition home or self-care (01) | DRG 291 ==
LOC: JER 09:38 → JERBED 14:40 → J4S 16:19
PROVIDERS: ADMIT Internal Medicine; ATTEND Internal Medicine
DX: I13.0 Hypertensive heart and chronic kidney disease with heart failure and stage 1 through stage 4 chronic kidney disease, or unspecified chronic kidney disease (principal); J18.9 Pneumonia, unspecified organism; I50.21 Acute systolic (congestive) heart failure; I69.351 Hemiplegia and hemiparesis following cerebral infarction affecting right dominant side; G40.89 Other seizures; J98.11 Atelectasis; N18.9 Chronic kidney disease, unspecified; G20 Parkinson's disease; E53.8 Deficiency of other specified B group vitamins; I69.393 Ataxia following cerebral infarction; J45.909 Unspecified asthma, uncomplicated; N40.0 Benign prostatic hyperplasia without lower urinary tract symptoms; I44.7 Left bundle-branch block, unspecified; I44.0 Atrioventricular block, first degree; R63.4 Abnormal weight loss; Z68.23 Body mass index [BMI] 23.0-23.9, adult
CPT/HCPCS: 36415; 71046-TC; 80053; 80061; 81003; 81015; 82550; 82553; 82607; 82803; 83036; 83721; 83880; 84443; 84484; 85025; 85379; 85610; 85730; 87804; 93005; 93010; 93306-TC; 93970-TC; 94640; 97116-GP; 97161-GP; 99285-25; J1644